=== PATIENT | female | born 1945 | race Caucasian/White ===

== ENCOUNTER 2024-09-10 13:36 | Emergency (ER) | payer OTHER, SELFPAY ==
[2024-09-10 13:42] VITALS: BP 119/78
[2024-09-10 14:07] LABS: % Basophils 0.6 % (0-2); % Immature Granulocytes 0.7 % (0-0.5); % Monocytes 8.1 % (1.7-9.3); % Neutrophils 65.6 % (42.2-75.2); Absolute Eosinophils 0.4 10^3/uL (0-0.7); Absolute Immature Granulocytes 0.1 10^3/uL (0-0.05); Absolute Lymphocytes 1.4 10^3/uL (1.2-3.4); Absolute Monocytes 0.6 10^3/uL (0.1-0.6); Absolute Neutrophils 4.6 10^3/uL (1.4-6.5); Hemoglobin 13.4 g/dL (12.0-16.0); Mean Corp Hgb Conc. 32.7 g/dL (33.0-37.0); Mean Corpuscular Hgb 30.9 pg (27.0-31.0); Mean Corpuscular Volume 94.7 fL (81.0-99.0); Mean Platelet Volume 9.9 fL (7.4-10.4); Nucleated Red Blood Cells % 0 %; Platelet Count 247 10^3/uL (130-400); Red Blood Cell Count 4.33 10^6/uL (4.20-5.40); Red Cell Dist. Width 13.5 % (11.5-14.5)
[2024-09-10 14:17] LABS: ALT (SGPT) 13 U/L (0-35); AST (SGOT) 20 U/L (14-36); Albumin 3.7 g/dl (3.5-5.0); Alkaline Phosphatase 112 U/L (38-126); Blood Urea Nitrogen 14 mg/dl (7-17); Calcium 8.9 mg/dl (8.4-10.2); Carbon Dioxide 29 mmol/L (22-30); Chloride 102 mmol/L (98-107); Glucose 99 mg/dl (70-99); Sodium 135 mmol/L (135-145); Total Bilirubin 0.7 mg/dl (0.2-1.3); Total Protein 6.3 g/dl (6.3-8.2); eGFR > 60.00
[2024-09-10 14:27] VITALS: BMI 32.7
[2024-09-10 14:28] LABS: Troponin I < 0.012 ng/ml
[2024-09-10 14:36] VITALS: BP 102/73
--- NOTE | 2024-09-10 14:36 | ED.GENMED ---
History of Present Illness
General
Chief Complaint: Chest Pain
Source: patient
Exam Limitations: none
Time Seen by Provider: 09/10/24 14:36
Nursing documentation reviewed up to this point in time: agreed with
History of Present Illness
History of Present Illness:
Eating 78-year-old female from home with history of mitral valve prolapse on Coreg 10 mg, hypothyroid, presents stating between 10 AM and 12 PM today she had mild left upper chest pain radiating to neck with a rapid heart rate her watch showing 150
and irregular heart rate. She did feel lightheaded at the time, she felt better at rest but whenever she got up to do something she would feel the same symptoms. She took an aspirin today prior to admission. She denies diaphoresis, nausea,
shortness of breath
She states 1 month ago she had left chest pain that radiated down her left arm and up into her jaw for about 30 minutes but it subsided and she never had it checked out.
Past History
Past History
ED Past Medical History: None, Hypothyroidism and Other (Chronic constipation, MVP)
ED Past Surgical History: None and Orthopedic
Social History
Tobacco: Non-smoker
Alcohol: None
Drug: None
Living: with family
Review of Systems
Review of Systems
Allergies reviewed?: Yes
All Other Systems: ROS reviewed and negative except as documented in HPI and ROS
Constitutional: Denies fever or fatigue
Respiratory: Denies trouble breathing
Cardiac: Reports chest pain and palpitations; Denies diaphoresis or syncope
ABD/GI: Denies abdominal pain or nausea
: Denies dysuria or difficulty voiding
Musculoskeletal: Reports no symptoms
Skin: Reports no symptoms
Neurological: Reports no symptoms
Phy Exam
Physical Exam
Physical Exam:
GENERAL: No acute distress. A&Ox3.
CONSTITUTIONAL: Afebrile.
EYES: clear, conjunctivae normal
ENMT: moist mucus membranes
RESPIRATORY: Regular respirations, nonlabored, lungs clear.
CARDIOVASCULAR: Regular rate and rhythm, no murmurs, no rubs.
GI: Soft, nontender, normal BS
MUSCULOSKELETAL: Moves with ease. Well perfused.
SKIN: Warm, dry, pink
PSYCH: Normal mood and affect. Well kept, interactive and appropriate
NEUROLOGIC: Awake, alert and oriented. No focal neurological deficits
Scores
Heart Score for Chest Pain Patients
STEMI patient?: Not applicable
Course
Orders/Labs/Results
Orders:
Orders
09/10/24 13:37
ECG [Electrocardiogram (*1)] Urgent
Reason for Study: Chest Pain
EKG- Treatment ONCE
09/10/24 13:54
Complete Blood Count/With Diff Urgent
Troponin I Urgent
09/10/24 13:55
Comprehensive Metabolic Panel Urgent
TSH Reflex To Free T4 Urgent
09/10/24 14:45
CR Chest - 2 Views Urgent
Comment:
Reason For Exam: chest pain
09/10/24 15:01
Troponin I Urgent
Abnormal Lab Results
09/10/24
13:54
MCHC 32.7 L g/dL
(33.0-37.0)
Abs Immat Gran (auto) 0.1 H 10^3/uL
(0-0.05)
Immature Gran % 0.7 H %
(0-0.5)
Lymphocytes % 20.0 L %
(20.5-51.1)
09/10/24 13:54
09/10/24 13:55
Vital Signs
Initial and Last Documented VS:
Initial Vital Signs
Temp Pulse Resp BP Pulse Ox
97.4 F 68 18 119/78 95
09/10/24 13:42 09/10/24 13:42 09/10/24 13:42 09/10/24 13:42 09/10/24 13:42
Last Documented Vital Signs
Temp Pulse Resp BP Pulse Ox
97.4 F 61 19 117/77 96
09/10/24 13:42 09/10/24 15:00 09/10/24 15:00 09/10/24 15:00 09/10/24 15:00
Computer Art Instructor consulted with Physician
Computer Art Instructor consulted with physician?: Yes
Name of Physician Consulted: Julisa
MDM/Problems Addressed
Differential Diagnosis Includes:
ACS, intermittent afib, SVT
MDM/Problems Addressed:
Eating 78-year-old female from home with history of mitral valve prolapse on Coreg 10 mg, hypothyroid, presents stating between 10 AM and 12 PM today she had mild left upper chest pain radiating to neck with a rapid heart rate her watch showing 150
and irregular heart rate. She did feel lightheaded at the time, she felt better at rest but whenever she got up to do something she would feel the same symptoms. She took an aspirin today prior to admission. She denies diaphoresis, nausea,
shortness of breath
She states 1 month ago she had left chest pain that radiated down her left arm and up into her jaw for about 30 minutes but it subsided and she never had it checked out.
EKG: NSR
2:30 p.m.
CBC normal
CMP normal
Troponin WNL
Case discussed with Dr. Egan.
TSH: WNL
Although MR# is even number, Pt requesting to see Dr. Hampton in follow up. Referred to [facility] cardiac hotline
Consulted Dr. Tubbs credit administration officer for [facility], asked if she should have Holter monitor today, he states she can get a Holter monitor when she makes the appointment to see them
Pt asymptomatic at discharge and ambulated out with son in law.
Chronic conditions affecting care: Other (Mitral valve prolapse)
*EKG
Interpreted by ED Provider?: Yes
EKG Intrepretation Date: 09/10/24
Interpretation: normal
Heart Rate: 75
Rate: normal
Rhythm: sinus
[place]: normal axis
Interval: normal interval
QRS Pattern: normal QRS
Ischemia: no ischemia
*Critical Care Note
Total Time (30-74mins, 75-104mins- exclusive of procedures): Not Applicable
ED Attending Note
-
Portions of this chart may have been created with voice recognition software.� Occasional wrong word or��sound alike� substitutions may have occurred due to the inherent limitations of voice recognition software.
Discharge Plan
Departure
Patient Disposition: Home (Routine Discharge)
Date of Disposition: 09/10/24
Time of Disposition: 15:49
Patient with high blood pressure during this ER visit?: No
Condition: Good
Discharge Problem:
History of palpitations, Chest pain
Instructions: Palpitations, Chest Pain DCA Follow Up
Prescriptions:
No Action
levothyroxine 100 MCG tablet
100 mcg PO DAILY
diclofenac sodium 75 MG tablet,delayed release (DR/EC)
75 mg PO BID
amitriptyline 25 MG tablet
50 mg PO HS
fluticasone propionate 1 SPRAY spray,suspension
2 spray intranasal DAILY
nitrofurantoin monohyd/m-cryst 100 MG capsule
100 mg PO BID 10 Days Qty: 20 0RF
Referrals:
Taj Lowery MD [Family Provider] -
Magnus Hampton MD [Active] - Follow up in 2-3 days
Activity Restrictions/Additional Instructions:
As we discussed, your workup here shows nothing worrisome.
You should be receiving a call from [facility]. Dr. Hampton belongs to that group, there is no guarantee that you will be seen by him but when they call you you can request him
You may need a Holter monitory
Return here immediately for persistent palpitations, worsening chest pain, or chest pain and palpitations associated with nausea, sweating, or feeling worse in any way.
Interventions
Interventions:
*Risk Screen - Suicide Last Done: 09/10/24 13:42
*General Assessment Last Done: 09/10/24 13:42
*Neglect/Abuse Screening Last Done: 09/10/24 13:42
*ED- Fall Risk Assessment Last Done: 09/10/24 14:27
*ED COVID-19 Vaccine History Last Done: 09/10/24 14:27
*Nursing Disposition Last Done: 09/10/24 16:15
ED- Cardiac Assessment Last Done: 09/10/24 14:27
Discharge Date and Time
Discharge Date/Time: 09/10/24 16:15
Print Language: [id number]
[2024-09-10 14:48] LABS: TSH Reflex To Free T4 2.08 uIU/ml (0.47-4.68)
[2024-09-10 15:00] VITALS: BP 117/77
[2024-09-10 15:30] LABS: Troponin I < 0.012 ng/ml
== END 2024-09-10 16:15 | disposition home or self-care (01) ==
LOC: EMR 13:36
PROVIDERS: Emergency Medicine; Registered Nurse; EMERGENCY PHYSICIAN Emergency Medicine; FAMILY PHYSICIAN Family Medicine
DX: R07.89 Other chest pain (principal); E03.9 Hypothyroidism, unspecified; I34.1 Nonrheumatic mitral (valve) prolapse; Z79.899 Other long term (current) drug therapy
CPT/HCPCS: 99285; 71046; 80053; 84443; 84484; 85025; 93005

== ENCOUNTER → 2025-01-29 14:53 | Outpatient (REF) | payer OTHER, SELFPAY | LOC: HWRCS 14:53 | PROVIDERS: ATTENDING PHYSICIAN Internal Medicine Cardiovascular Disease; FAMILY PHYSICIAN Family Medicine | DX: I34.0 Nonrheumatic mitral (valve) insufficiency (principal) | CPT/HCPCS: 93306 ==